=== PATIENT | female | born 1995 ===

== ENCOUNTER 2023-08-11 10:35 | Outpatient (CLI) | payer SELFPAY ==
[~2023-08-11] VITALS: Ht 149.9 cm; Wt 118.9 kg
[2023-08-11] MEDS ORDERED: PRENTAB9 PO (10:49)
[2023-08-11 10:54] VITALS: BP 107/70
[2023-08-11 11:42] LABS: MEAN CORPUSCULAR HEMOGLOBIN 27.6 pg (27.0-33.0); MEAN CORPUSCULAR HGB CONC 31.6 g/dl (32.0-36.5); MEAN CORPUSCULAR VOLUME 87.4 fl (80.0-96.0); PLATELET COUNT, AUTOMATED 246 10^3/uL (150-450); RED BLOOD COUNT 4.35 10^6/uL (4.00-5.40); WHITE BLOOD COUNT 8.6 10^3/uL (4.0-10.0)
[2023-08-11] MEDS ORDERED: oxyCODONE 5MG TAB PO ONE ×2 (12:05→13:00)
[2023-08-11] MEDS ORDERED: oxyCODONE 5MG TAB As Ordered ONE ×2 (12:10→12:22)
[2023-08-11 12:53] VITALS: BP 125/73
[2023-08-11 13:23] LABS: LIPASE 34 U/L (12-53)
[2023-08-11 13:34] LABS: ALBUMIN 2.6 G/DL (3.2-5.2); ALKALINE PHOSPHATASE 136 U/L (46-116); ALT/SGPT 10 U/L (7.0-40); AST/SGOT 10 U/L (<34); BILIRUBIN,TOTAL 0.3 MG/DL (0.3-1.2); BLOOD UREA NITROGEN 7 MG/DL (9-23); CALCIUM LEVEL 8.6 MG/DL (8.5-10.1); CARBON DIOXIDE LEVEL 22 MMOL/L (20-31); CHLORIDE LEVEL 105 MMOL/L (98-107); CREATININE FOR GFR 0.55 MG/DL (0.55-1.30); GLOMERULAR FILTRATION RATE > 60.0 (>60); GLUCOSE, FASTING 111 MG/DL (60-100); POTASSIUM SERUM 3.6 MMOL/L (3.5-5.1); SODIUM LEVEL 139 MMOL/L (136-145); TOTAL PROTEIN 5.9 G/DL (5.7-8.2)
[2023-08-11] MEDS ORDERED: MORPHINE 10 MG/ML 1ML VIAL IV ONE ×2 (14:50→18:05)
[2023-08-11 17:42] VITALS: BP 123/71
[2023-08-11 19:22] LABS: HEMATOCRIT 33.8 % (36.0-47.0); HEMOGLOBIN 10.8 g/dl (12.0-15.5); MEAN CORPUSCULAR HEMOGLOBIN 27.6 pg (27.0-33.0); MEAN CORPUSCULAR VOLUME 86.2 fl (80.0-96.0); PLATELET COUNT, AUTOMATED 214 10^3/uL (150-450); RED BLOOD COUNT 3.92 10^6/uL (4.00-5.40); WHITE BLOOD COUNT 10.8 10^3/uL (4.0-10.0)
[2023-08-11 19:36] LABS: INR 1.01
[2023-08-11 19:37] LABS: PARTIAL THROMBOPLASTIN TIME 22.9 SECONDS (24.8-34.2)
[2023-08-11 19:50] LABS: LIPASE 26 U/L (12-53)
[2023-08-11 19:55] LABS: ALBUMIN 2.4 G/DL (3.2-5.2); ALKALINE PHOSPHATASE 127 U/L (46-116); ALT/SGPT 10 U/L (7.0-40); AST/SGOT 9 U/L (<34); BILIRUBIN,TOTAL 0.4 MG/DL (0.3-1.2); BLOOD UREA NITROGEN 5 MG/DL (9-23); CALCIUM LEVEL 8.1 MG/DL (8.5-10.1); CARBON DIOXIDE LEVEL 20 MMOL/L (20-31); CHLORIDE LEVEL 105 MMOL/L (98-107); CREATININE FOR GFR 0.48 MG/DL (0.55-1.30); GLOMERULAR FILTRATION RATE > 60.0 (>60); GLUCOSE, FASTING 88 MG/DL (60-100); POTASSIUM SERUM 3.7 MMOL/L (3.5-5.1); SODIUM LEVEL 138 MMOL/L (136-145); TOTAL PROTEIN 5.5 G/DL (5.7-8.2)
[2023-08-11 21:16] VITALS: BP 135/75
[2023-08-11] MEDS ORDERED: NALBUPHINE HCL (10 MG/ML) 100MG/10ML MDV IV ONE (22:25)
[2023-08-11] MEDS ORDERED: PROMETHAZINE 25MG/ML 1ML VIAL IV ONE (22:25)
[2023-08-12 00:08] VITALS: BP 118/77
[2023-08-12 02:42] VITALS: BP 115/65
[2023-08-12] MEDS ORDERED: NALBUPHINE HCL (10 MG/ML) 100MG/10ML MDV IV ONE (06:00)
[2023-08-12] MEDS ORDERED: PROMETHAZINE 25MG/ML 1ML VIAL IV ONE (06:00)
[2023-08-12 06:15] VITALS: BP 105/61
[2023-08-12 06:26] LABS: HEMOGLOBIN 10.8 g/dl (12.0-15.5); MEAN CORPUSCULAR HEMOGLOBIN 27.7 pg (27.0-33.0); MEAN CORPUSCULAR HGB CONC 31.8 g/dl (32.0-36.5); MEAN CORPUSCULAR VOLUME 87.2 fl (80.0-96.0); PLATELET COUNT, AUTOMATED 204 10^3/uL (150-450)
[2023-08-12 06:36] LABS: INR 1.08; PROTHROMBIN TIME 13.7 SECONDS (12.5-14.5)
[2023-08-12 06:43] LABS: LIPASE 50 U/L (12-53)
[2023-08-12 06:47] VITALS: BP 110/64
[2023-08-12 06:48] LABS: ALBUMIN 2.2 G/DL (3.2-5.2); ALKALINE PHOSPHATASE 115 U/L (46-116); ALT/SGPT 9 U/L (7.0-40); AST/SGOT 12 U/L (<34); BILIRUBIN,TOTAL 0.4 MG/DL (0.3-1.2); BLOOD UREA NITROGEN < 5 MG/DL (9-23); CALCIUM LEVEL 8.2 MG/DL (8.5-10.1); CARBON DIOXIDE LEVEL 21 MMOL/L (20-31); CHLORIDE LEVEL 107 MMOL/L (98-107); CREATININE FOR GFR 0.46 MG/DL (0.55-1.30); GLOMERULAR FILTRATION RATE > 60.0 (>60); GLUCOSE, FASTING 91 MG/DL (60-100); POTASSIUM SERUM 3.6 MMOL/L (3.5-5.1); SODIUM LEVEL 136 MMOL/L (136-145); TOTAL PROTEIN 5.3 G/DL (5.7-8.2)
[2023-08-12 07:46] VITALS: BP 114/58
[2023-08-12 09:10] VITALS: BP 135/63
== END 2023-08-12 09:30 | disposition home or self-care (01) ==
LOC: M LDO 10:35
PROVIDERS: ATTEND Obstetrics & Gynecology
DX: O26.893 Other specified pregnancy related conditions, third trimester (principal); R10.0 Acute abdomen; Z3A.34 34 weeks gestation of pregnancy
CPT/HCPCS: 36415; 59025; 74181; 76775; 76811; 76815; 76820; 76856; 80053; 81001; 83690; 85027; 85384; 85610; 85730; 87088; 93976; G0463; J2300; J2550

== ENCOUNTER 2023-09-07 04:24 | Inpatient (IN) | payer OTHER ==
[~2023-09-07] VITALS: Ht 149.9 cm; Wt 117.7 kg
[2023-09-07] VITALS (12 sets, daily range): BP systolic 117–186; BP diastolic 64–111
[~2023-09-07 04:24] MED LIST: PRENTAB9 PO
[2023-09-07] MEDS ORDERED: LR 1,000 ML IV SCH ×2 (04:40→11:45)
[2023-09-07] MEDS ORDERED: PENICILLIN G POTASSIUM 5 MU IV 5 MU in D5W MINI-BAG PLUS 100 ML IV ONE (04:40)
[2023-09-07] MEDS ORDERED: LACTATED RINGER'S 1000 ML IV STA (04:47)
[2023-09-07] MEDS ORDERED: CARBOPROST TROMETHAMINE 250 MCG/ML AMP IM PRN (04:50)
[2023-09-07] MEDS ORDERED: LIDOCAINE 1% MDV 20ML VIAL INFIL PRN (04:50)
[2023-09-07] MEDS ORDERED: OXYTOCIN DRIP 30 UNITS in IV 1 EA IV PRN (04:50)
[2023-09-07] MEDS ORDERED: TRANEXAMIC ACID INJection 1,000 MG in NS 100 ML IV PRN (04:50)
[2023-09-07] MEDS ORDERED: METHYLERGONOVINE MALEATE 0.2MG/ML 1ML VIAL IM PRN (04:50)
[2023-09-07] MEDS ORDERED: OXYTOCIN INJ 10UNITS/ML 1ML VIAL IM PRN (04:50)
[2023-09-07 05:36] LABS: HEMATOCRIT 36.4 % (36.0-47.0); MEAN CORPUSCULAR VOLUME 84.8 fl (80.0-96.0); PLATELET COUNT, AUTOMATED 240 10^3/uL (150-450); RED BLOOD COUNT 4.29 10^6/uL (4.00-5.40); WHITE BLOOD COUNT 9.2 10^3/uL (4.0-10.0)
[2023-09-07] MEDS: LR 1,000 ML IV SCH ×2 (09:29→12:50)
[2023-09-07] MEDS: PEN G POT 3,000,000 UNIT/50 ML 3,000,000 UNIT in IV 1 EA IV SCH ×2 (09:29→13:28)
[2023-09-07] MEDS ORDERED: OXYTOCIN DRIP 30 UNITS in IV 1 EA IV SCH ×2 (11:45→15:55)
[2023-09-07] MEDS ORDERED: ACETAMINOPHEN TAB 650MG DOSE (2X325MG) PO PRN (15:55)
[2023-09-07] MEDS ORDERED: RHOGAM 300MCG (1500IU) INJ IM SCH (15:55)
[2023-09-07] MEDS ORDERED: METHYLERGONOVINE MALEATE 0.2 MG TAB PO PRN (15:55)
[2023-09-07] MEDS ORDERED: ACETAMINOPHEN 500 MG TAB PO PRN (15:55)
[2023-09-07] MEDS ORDERED: IBUPROFEN 600MG TAB PO PRN (15:55)
[2023-09-07] MEDS ORDERED: DOCUSATE SODIUM 100MG CAPSULE PO PRN (15:55)
[2023-09-07] MEDS ORDERED: DIBUCAINE 1% OINTMENT 30GM TOP PRN (15:55)
[2023-09-07] MEDS ORDERED: ANUSOL HC CREAM 30GM TOP PRN (15:55)
[2023-09-07] MEDS ORDERED: IBUPROFEN 800 MG TAB PO PRN (15:55)
[2023-09-08 06:00] VITALS: BP 145/65; O2SAT 98
[2023-09-08 08:37] LABS: HEMATOCRIT 32.7 % (36.0-47.0); HEMOGLOBIN 10.7 g/dl (12.0-15.5); MEAN CORPUSCULAR HEMOGLOBIN 28.2 pg (27.0-33.0); MEAN CORPUSCULAR HGB CONC 32.7 g/dl (32.0-36.5); MEAN CORPUSCULAR VOLUME 86.1 fl (80.0-96.0); PLATELET COUNT, AUTOMATED 217 10^3/uL (150-450); WHITE BLOOD COUNT 9.2 10^3/uL (4.0-10.0)
[2023-09-08] MEDS: PRENATAL VITAMINS CHEWABLE TABLET PO SCH (09:18)
[2023-09-08 18:00] VITALS: BP 118/73; O2SAT 96
[2023-09-09 06:00] VITALS: BP 126/62; O2SAT 97
[2023-09-09] MEDS ORDERED: IBUP-1022 PO (08:15)
[2023-09-09] MEDS ORDERED: ACET1TAB55 PO (08:15)
[2023-09-09] MEDS: PRENATAL VITAMINS CHEWABLE TABLET PO SCH (08:52)
[2023-09-09] MEDS ORDERED: MEASLES,MUMPS,RUBELLA VACCINE INJ (MMR-II) SC.IMMUN ONE (09:00)
== END 2023-09-09 18:45 | disposition home or self-care (01) | DRG 807 ==
LOC: M LDO 04:24 → M LDI 04:41 → M OBS 16:48
PROVIDERS: ADMIT Obstetrics & Gynecology; ATTEND Obstetrics & Gynecology
PROC: 10E0XZZ Delivery of Products of Conception, External Approach (ICD-10-PCS; principal; 2023-09-07)
PROC: 0KQM0ZZ Repair Perineum Muscle, Open Approach (ICD-10-PCS; 2023-09-07)
DX: O99.824 Streptococcus B carrier state complicating childbirth (principal); Z37.0 Single live birth; Z3A.38 38 weeks gestation of pregnancy; O66.0 Obstructed labor due to shoulder dystocia; O69.81X0 Labor and delivery complicated by cord around neck, without compression, not applicable or unspecified; O70.1 Second degree perineal laceration during delivery